=== PATIENT | female | born 1940 | race African-American/Black ===

== ENCOUNTER 2016-06-26 18:05 | Inpatient (IN) | payer MEDICARE ==
--- NOTE | ~2016-06-26 | DS ---
Discharge Summary [address] [place]. [address] NAME: ALTAF RENTERIA : 36 STATUS : DIS IN PAT#: [id number] AGE: 75 ADM/REG DATE : 06/26/16 MR#: [id number] REPORT SERV DATE: 07/02/16 DICTATED BY: GILBERTO BOLIVAR DATE: 07/01/16 REPORT STATUS : Draft TRANSCRIBED BY: KURT DATE: 07/01/16 ADMISSION DATE: 06/26/2016 DISCHARGE DATE: 07/01/2016 The patient has been approved for subacute rehab given her hemodynamic stability, the patient will be discharged today to subacute rehab. DISCHARGE EXAM: GENERAL: The patient's blood pressure 122/60, pulse of 66, respirations of 15, O2 saturation 97% on room air. The patient sitting in chair, in no acute distress. Appears stated age. Alert and oriented x3. HEENT: Normocephalic, atraumatic. Extraocular motors intact. Moist oral mucosa. Pupils round reactive to light and accommodation. NECK: Trachea midline and symmetric. No JVD noted. No thyromegaly present. No lymphadenopathy present. CHEST: Nontender to palpation. No scars noted. CARDIOVASCULAR: Regular rate and rhythm. S1, S2. No murmurs, rubs, or gallops. LUNGS: Clear to auscultation bilaterally. No added breath sounds. ABDOMEN: Positive bowel sounds. Nontender. Nondistended. No masses palpated. EXTREMITIES: No cyanosis, no clubbing, no edema. NEURO: Alert and oriented x3. No focal deficits appreciated. DISCHARGE MEDICATIONS: Amlodipine 10 mg p.o. daily, lisinopril 10 mg p.o. daily. Neosporin ointment 15 g apply to the affected areas. DISPOSITION: The patient will be discharged to [facility]. ACTIVITY: As tolerated. DIET: Regular diet. Greater than 30 minutes was spent coordinating, discharge, dictating note, medication reconciliation, discussion of care with nursing staff and case management. DELONTE Gilberto Bolivar MD / [id number] CC: MD Gera Polo, DO
--- NOTE | ~2016-06-26 | IDS ---
Interim Discharge Summary [facility] [address] [place]. [address] NAME: ALTAF RENTERIA : 36 STATUS : ADM IN PAT#: [id number] AGE: 75 ADM/REG DATE : 06/26/16 MR#: [id number] REPORT SERV DATE: 07/01/16 DICTATED BY: GILBERTO BOLIVAR DATE: 07/01/16 REPORT STATUS : Draft TRANSCRIBED BY: MODL DATE: 07/01/16 ADMISSION DATE: 06/26/2016 DISCHARGE DATE: The patient is a 75-year-old female with a history of hypertension and dementia who presented to the hospital with altered mental status. For further details please refer to H and P dictated by Dr. Kan on 06/27/2016. HOSPITAL COURSE: Upon presentation to the emergency room, preliminary workup noted the patient with hyponatremia and chest x-ray findings concerning for pneumonia. The patient was admitted to hospital service for further management. The patient was started on IV antibiotics for treatment of community-acquired pneumonia. Also, when the patient arrived to the floor, her sodium was noted to be at 120, and the patient was started on 3% IV normal saline. The patient received a total of about 290 mL of 3% sodium over the course of 48 hours with eventual correction of her sodium initially to 132. Over the course of her hospitalization, her sodium was progressively improved, and now it is normal at sodium of 140. Also during her hospital course, the patient was noted to be hypertensive started on amlodipine and lisinopril with good blood pressure control achieved. Management of the patient was complete on Friday and on 06/29/2016, the patient was scheduled to be discharged, however, on 06/29/2016, the patient had a fall episode. Given this significant change on discharge, plans were canceled. PT was called to evaluate the patient. Per PT evaluation, their recommendation was for patient to be discharged to subacute rehab. Plan was discussed with the patient who was agreeable. The patient currently is hemodynamically stable, medically clear for discharge. She is pending discharge to [facility] pending bed availability. DISCHARGE DIAGNOSES: 1. Hyponatremia. 2. Acute encephalopathy. 3. Hypertension. 4. Community-acquired pneumonia. 5. Ground level fall. 6. Dementia. DISPOSITION IMAGING: CT brain without contrast impression: No acute intracranial abnormality identified at this time. Mild cortical volume loss and findings compatible with mild chronic deep white matter ischemic changes. Portable chest x-ray, impression: No acute process. Markings in the right upper lobe have resolved. Two-view radiograph of right hip impression; no evidence of acute right hip abnormality. DISCHARGE PLANNING: Pending availability of bed at [facility]. Interim Discharge Summary [address] [place]. [address] NAME: ALTAF RENTERIA : 36 STATUS : ADM [facility]#: [id number] AGE: 75 ADM/REG DATE : 06/26/16 MR#: [id number] REPORT SERV DATE: 07/01/16 DICTATED BY: GILBERTO BOLIVAR DATE: 07/01/16 REPORT STATUS : Draft TRANSCRIBED BY: KURT DATE: 07/01/16 DANNY/KURT Gilberto Bolivar MD / [id number] CC: MD Mey Polo
--- NOTE | ~2016-06-26 | HP ---
History And Physical [id number] [facility] [place]. [address] NAME: ALTAF RENTERIA : 36 STATUS : ADM IN PAT#: [id number] AGE: 75 ADM/REG DATE : 06/26/16 MR#: [id number] REPORT SERV DATE: 06/27/16 DICTATED BY: TURNER KAN DATE: 06/26/16 REPORT STATUS : Draft TRANSCRIBED BY: MODL DATE: 06/26/16 DATE OF ADMISSION: 06/26/2016 CHIEF COMPLAINT: Altered mental status. HISTORY OF PRESENT ILLNESS: This is a 75-year-old lady with history of hypertension, diabetes, and dementia presenting with altered mental status. Please note that at the time of my encounter with the patient, the patient was not able to provide any valuable history. The patient was actually quite lethargic and was not that responsive. This H and P is formulated from information gathered from ER staff as well as the patient's grandson who was at bedside in the ER. The patient was last seen normal by the grandson yesterday and the day before. The patient did not have any acute illnesses and she did not have any acute complaints. Apparently last night when the patient was talking to one of her family members, she sounded a little bit more altered, however, given her baseline dementia that did not raise any concerns. This morning, the patient's grandson was told by one of the family members to pay her a visit because the patient was still altered. When the patient's grandson got to the house and called the patient, the patient actually picked up the phone and she said she would come out and open the door, however, she never actually came out to open the door. When grandson went to the back of the house and entered the house, the patient was seen walking around in the house confused. The patient apparently reported that she was not feeling well, that she had nausea and some headache. The patient was brought to the ER for further evaluation and care. The patient was able to walk out of the house with minimal assistance, and on the way to the ER, the patient had two episodes of vomiting. Once the patient got to the ER, the patient could not get out of the car and required a lot of assistance to be transported into the ER. Ever since being in the ER, the patient became progressively more lethargic. In the ER, the patient was found to be afebrile, and initially, she was found to be quite hypertensive with blood pressure of 201/103 and it remained high throughout the ER stay. The patient was, otherwise, hemodynamically stable and rest of her vitals were within normal limits. Initial lab evaluation revealed a hyponatremia with sodium of 123, but otherwise, fairly benign electrolytes and LFTs. The patient's CBC was also quite benign. Lactate was found to be elevated at 4.1. Urinalysis was benign and CT of the head was also nonacute other than mild volume loss and chronic ischemic changes. The patient's chest x-ray showed questionable right upper lobe pneumonia. Internal Medicine consultation was requested for admission of the patient for further evaluation and care. Upon asking the patient's grandson, he reports that when he entered the house, he noticed that the patient has not taken her medications. He thus gave her Zoloft and Namenda, but he could not find her antihypertensive which is a Norvasc and thus that was not given to the patient before coming to the ER. REVIEW OF SYSTEMS: Unable to be obtained from the patient at this time. History And Physical [address] [address] NAME: ALTAF RENTERIA : 36 STATUS : ADM IN [facility]#: [id number] AGE: 75 ADM/REG DATE : 06/26/16 MR#: [id number] REPORT SERV DATE: 06/27/16 DICTATED BY: TURNER KAN DATE: 06/26/16 REPORT STATUS : Draft TRANSCRIBED BY: MODKee DATE: 06/26/16 MEDICATIONS: The medication list is questionably complete, but: 1. Norvasc 10 mg p.o. daily. 2. Namenda 20 mg p.o. daily. 3. Zoloft 50 mg p.o. daily. ALLERGIES: NKDA. PAST MEDICAL HISTORY: 1. Hypertension. 2. Diabetes type 2. 3. Dementia, but the patient is still quite independent at baseline. PAST SURGICAL HISTORY: The patient's grandson is unaware of any major surgeries. FAMILY HISTORY: Hypertension. SOCIAL HISTORY: The patient does not smoke, drink alcohol, or use any illicit drugs. Again, the patient does have dementia, but it appears to be quite mild at baseline and she still lives by herself. The patient requires minimal assistance from the family members. PHYSICAL EXAMINATION: VITAL SIGNS: Temperature 97.2, blood pressure 201/103, pulse 86, respiratory rate is 18, and saturating 98% on room air. The patient is quite lethargic and she will barely arouse and awake to stimuli. The patient is still seem to be moving all extremities without difficulty, and there are no obvious focal neurologic deficits. GENERAL: Again, the patient is quite lethargic, but she does not appear to be in acute distress. The patient is not cooperative secondary to the encephalopathy. NECK: No JVD. No lymphadenopathy. Normal thyroid. CHEST: No midline sternotomy scar and no tenderness to palpation. LUNGS: Clear to auscultation bilaterally with normal respiratory effort on room air. CARDIOVASCULAR: Regular rate and rhythm with no murmurs, rubs, or gallops and PMI is nondisplaced. ABDOMEN: Soft and nontender with active bowel sounds and no organomegaly. EXTREMITIES: No edema. Normal distal pulses. No calf tenderness. SKIN: Clean, dry, warm, and intact. LABORATORY DATA: Sodium is 123, potassium 3.9, chloride 84, BUN 8, creatinine 0.62, glucose 179, and calcium 9.4. LFTs are within normal limits. Lactate is 4.1. White blood cell count is 9.2, hemoglobin 13.1, and platelets 270. INR is 1.0. Troponin is less than 0.02 and TSH was 0.858. Urinalysis was negative for urinary tract infection. Chest x-ray is personally interpreted and it shows questionable right upper lobe pneumonia. CT of the head was negative other than chronic mild volume loss as well as chronic ischemic changes of the white matter. ASSESSMENT: This is a 75-year-old lady with history of hypertension, diabetes, and dementia presenting with an acute encephalopathy. History And Physical [address] [address] NAME: DEXTERALTAF Halie : 36 STATUS : ADM IN [facility]#: [id number] AGE: 75 ADM/REG DATE : 06/26/16 MR#: [id number] REPORT SERV DATE: 06/27/16 DICTATED BY: TURNER KAN DATE: 06/26/16 REPORT STATUS : Draft TRANSCRIBED BY: MODL DATE: 06/26/16 1. Acute encephalopathy. 2. Hypertensive urgency versus emergency. 3. Hyponatremia. 4. Questionable pneumonia, right upper lobe. 5. Diabetes. 6. Baseline dementia, mild. PLAN: My plan is to admit the patient on the telemetry monitoring. The patient will be given gentle IV fluid resuscitation. The patient's hypertension will be controlled with topical nitroglycerin paste as well as p.r.n. antihypertensives. I will also go ahead and start her p.o. antihypertensives when she is more awake. In's and out's will be closely monitored as well as electrolytes and renal function. I will also go ahead and start her on empiric antibiotics to cover community-acquired pneumonia and I will do infectious workup. Otherwise, standard DVT prophylaxis. The patient is full code at this time. YSC/MODL Turner Kan MD / [id number] CC: Franky Torres MD
[2016-06-26 17:36] LABS: ASCORBIC ACID (UR NOT ORDER) NEG (NEG); BILIRUBIN, URINE NEGATIVE (NEG); ER URINALYSIS TAT 0 Hrs 10 Mins; KETONE, URINE 20 MG/DL (NEG); LEUKOCYTE ESTERASE(NOT OR NEG (NEG); NITRITE (URINE) NEG (NEG); WBC (NOT ORDERED) (RFLEX) 1 (0-5)
[2016-06-26 17:39] LABS: PROTIME (NOT ORD) 13.4 SEC (12.0-14.5)
[2016-06-26 17:56] LABS: ALBUMIN 4.3 G/DL (3.5-5.0); ALKALINE PHOSPHATASE 70 U/L (45-117); CALCIUM, SERUM 9.4 MG/DL (8.5-10.4); CREATININE 0.62 MG/DL (0.55-1.02); GFR AFRICAN AMERICAN 101 ML/MIN (>=60); GFR NON AFRICAN AMERICAN 87 ML/MIN (>=60); POTASSIUM, SERUM 3.9 MMOL/L (3.5-5.3); SGOT(AST) 17 U/L (5-40); SGPT(ALT) 22 U/L (5-65); TROPONIN I <0.02 NG/ML (<0.05)
[2016-06-26 17:57] LABS: A/G RATIO 1.2 (0.7-1.9); BUN (BLOOD UREA NITROGEN) 8 MG/DL (6-23); CHLORIDE, SERUM 84 MMOL/L (96-112); CO2 (CARBON DIOXIDE) 23 MMOL/L (24-34); GLOBULIN 3.7 G/DL (2.5-4.1); GLUCOSE, SERUM 179 MG/DL (60-99); SODIUM, SERUM 123 MMOL/L (135-148); TOTAL BILIRUBIN 1.7 MG/DL (0-1.2); ULTRASENSITIVE TSH 0.858 MCIU/ML (0.358-3.740)
[2016-06-26] MEDS ORDERED: ZOLOFT (18:12)
[2016-06-26] MEDS ORDERED: NAMENXR28 PO (18:12)
[2016-06-26] MEDS ORDERED: ZOL50 PO (18:12)
[2016-06-26] MEDS ORDERED: NORV10 PO (18:13)
[2016-06-26 18:56] LABS: BASOPHILS 0 %; EOSINOPHILS 0 %; HEMATOCRIT 37.7 % (36.0-48.0); HEMOGLOBIN 13.1 g/dL (12.0-16.0); IMMATURE GRANULOCYTES 0.5 %; IMMATURE GRANULOCYTES ABSOLUTE 0.05 10/3/uL (0.0-0.11); LYMPHOCYTES 4.6 %; LYMPHOCYTES ABSOLUTE 0.42 10/3/uL (0.67-4.30); MEAN CORPUSCULAR HEMOGLOB 29.1 pg (26.0-34.0); MEAN PLATELET VOLUME 9.4 fL (9.2-13.0); MONOCYTES 4.2 %; MONOCYTES ABSOLUTE 0.39 10/3/uL (0.21-1.20); NEUTROPHILS 90.7 %; NEUTROPHILS ABSOLUTE 8.34 10/3/uL (2.02-8.40); PLATELET COUNT 270 10/3/uL (150-400); RBC DISTRIBUTION WIDTH 12.2 % (12.0-16.0)
[2016-06-26 18:58] LABS: MANUAL DIFF NO %; MEAN CORPUS HGB CONC 34.7 g/dL (32.0-36.0); MEAN CORPUSCULAR VOLUME 83.8 fL (80-100); WHITE BLOOD CELLS 9.2 10/3/uL (4.5-10.5)
[2016-06-27 01:42] LABS: CPK (IF ELEVATED MB BANDS) 128 U/L (0-200); TROPONIN I <0.02 NG/ML (<0.05)
[2016-06-27 02:18] LABS: PROCALCITONIN 0.06 ng/mL (<0.5)
[2016-06-27 06:21] LABS: BASOPHILS 0 %; EOSINOPHILS 0 %; HEMOGLOBIN 12.7 g/dL (12.0-16.0); LYMPHOCYTES 11.5 %; LYMPHOCYTES ABSOLUTE 0.64 10/3/uL (0.67-4.30); MEAN CORPUS HGB CONC 35.3 g/dL (32.0-36.0); MEAN PLATELET VOLUME 9.4 fL (9.2-13.0); MONOCYTES 3.8 %; MONOCYTES ABSOLUTE 0.21 10/3/uL (0.21-1.20); NEUTROPHILS 84.7 %; PLATELET COUNT 345 10/3/uL (150-400); RBC DISTRIBUTION WIDTH 12.3 % (12.0-16.0); RED CELL COUNT 4.53 10/6/uL (4.0-5.6); WHITE BLOOD CELLS 5.6 10/3/uL (4.5-10.5)
[2016-06-27 06:24] LABS: MANUAL DIFF NO %; MEAN CORPUSCULAR VOLUME 79.5 fL (80-100)
[2016-06-27 06:25] LABS: BUN (BLOOD UREA NITROGEN) 11 MG/DL (6-23); CALCIUM, SERUM 8.5 MG/DL (8.5-10.4); CHLORIDE, SERUM 84 MMOL/L (96-112); CO2 (CARBON DIOXIDE) 20 MMOL/L (24-34); CPK (IF ELEVATED MB BANDS) 146 U/L (0-200); CREATININE 0.71 MG/DL (0.55-1.02); GFR AFRICAN AMERICAN 95 ML/MIN (>=60); GFR NON AFRICAN AMERICAN 82 ML/MIN (>=60); GLUCOSE, SERUM 169 MG/DL (60-99); POTASSIUM, SERUM 3.5 MMOL/L (3.5-5.3); TROPONIN I <0.02 NG/ML (<0.05)
[2016-06-27 06:26] LABS: SODIUM, SERUM 120 MMOL/L (135-148)
[2016-06-27 17:37] LABS: BUN (BLOOD UREA NITROGEN) 13 MG/DL (6-23); CALCIUM, SERUM 8.5 MG/DL (8.5-10.4); CHLORIDE, SERUM 87 MMOL/L (96-112); CO2 (CARBON DIOXIDE) 22 MMOL/L (24-34); CREATININE 0.58 MG/DL (0.55-1.02); GFR AFRICAN AMERICAN 103 ML/MIN (>=60); GFR NON AFRICAN AMERICAN 89 ML/MIN (>=60)
[2016-06-27 17:38] LABS: GLUCOSE, SERUM 131 MG/DL (60-99); SODIUM, SERUM 119 MMOL/L (135-148)
[2016-06-28 00:42] LABS: BUN (BLOOD UREA NITROGEN) 12 MG/DL (6-23); CALCIUM, SERUM 8.4 MG/DL (8.5-10.4); CHLORIDE, SERUM 86 MMOL/L (96-112); CO2 (CARBON DIOXIDE) 24 MMOL/L (24-34); CREATININE 0.49 MG/DL (0.55-1.02); GFR AFRICAN AMERICAN 109 ML/MIN (>=60); GFR NON AFRICAN AMERICAN 94 ML/MIN (>=60); POTASSIUM, SERUM 3.8 MMOL/L (3.5-5.3); SODIUM, SERUM 123 MMOL/L (135-148)
[2016-06-28 00:47] LABS: GLUCOSE, SERUM 104 MG/DL (60-99)
[2016-06-28 05:08] LABS: BASOPHILS 0 %; EOSINOPHILS 0 %; HEMATOCRIT 34.7 % (36.0-48.0); HEMOGLOBIN 12.3 g/dL (12.0-16.0); IMMATURE GRANULOCYTES 0.2 %; IMMATURE GRANULOCYTES ABSOLUTE 0.02 10/3/uL (0.0-0.11); LYMPHOCYTES 8.6 %; LYMPHOCYTES ABSOLUTE 0.83 10/3/uL (0.67-4.30); MEAN CORPUS HGB CONC 35.4 g/dL (32.0-36.0); MEAN CORPUSCULAR HEMOGLOB 28.9 pg (26.0-34.0); MEAN CORPUSCULAR VOLUME 81.6 fL (80-100); MEAN PLATELET VOLUME 9.3 fL (9.2-13.0); MONOCYTES 7.3 %; NEUTROPHILS 83.9 %; PLATELET COUNT 313 10/3/uL (150-400); RBC DISTRIBUTION WIDTH 12.2 % (12.0-16.0); RED CELL COUNT 4.25 10/6/uL (4.0-5.6)
[2016-06-28 05:09] LABS: MANUAL DIFF NO %; WHITE BLOOD CELLS 9.7 10/3/uL (4.5-10.5)
[2016-06-28 05:10] LABS: A/G RATIO 1.1 (0.7-1.9); ALBUMIN 3.5 G/DL (3.5-5.0); BUN (BLOOD UREA NITROGEN) 12 MG/DL (6-23); CALCIUM, SERUM 8.3 MG/DL (8.5-10.4); CHLORIDE, SERUM 89 MMOL/L (96-112); CO2 (CARBON DIOXIDE) 23 MMOL/L (24-34); CREATININE 0.51 MG/DL (0.55-1.02); GFR AFRICAN AMERICAN 107 ML/MIN (>=60); GFR NON AFRICAN AMERICAN 93 ML/MIN (>=60); GLOBULIN 3.1 G/DL (2.5-4.1); GLUCOSE, SERUM 106 MG/DL (60-99); POTASSIUM, SERUM 3.7 MMOL/L (3.5-5.3); SGOT(AST) 21 U/L (5-40); SGPT(ALT) 22 U/L (5-65); SODIUM, SERUM 123 MMOL/L (135-148); TOTAL PROTEIN 6.6 G/DL (6.0-8.5)
[2016-06-28 05:12] LABS: ALKALINE PHOSPHATASE 50 U/L (45-117); TOTAL BILIRUBIN 0.9 MG/DL (0-1.2)
[2016-06-28 17:47] LABS: BUN (BLOOD UREA NITROGEN) 13 MG/DL (6-23); CALCIUM, SERUM 8.7 MG/DL (8.5-10.4); CHLORIDE, SERUM 98 MMOL/L (96-112); CO2 (CARBON DIOXIDE) 22 MMOL/L (24-34); CREATININE 0.46 MG/DL (0.55-1.02); GFR AFRICAN AMERICAN 111 ML/MIN (>=60); GFR NON AFRICAN AMERICAN 96 ML/MIN (>=60); GLUCOSE, SERUM 92 MG/DL (60-99); POTASSIUM, SERUM 4.1 MMOL/L (3.5-5.3)
[2016-06-28 17:50] LABS: SODIUM, SERUM 132 MMOL/L (135-148)
[2016-06-28 19:57] LABS: CREATININE, URINE 32.3 MG/DL
[2016-06-29 07:34] LABS: BASOPHILS 0 %; EOSINOPHILS 0.4 %; EOSINOPHILS ABSOLUTE 0.02 10/3/uL (0.0-0.53); HEMOGLOBIN 12.2 g/dL (12.0-16.0); IMMATURE GRANULOCYTES 0.4 %; IMMATURE GRANULOCYTES ABSOLUTE 0.02 10/3/uL (0.0-0.11); LYMPHOCYTES 18.5 %; LYMPHOCYTES ABSOLUTE 0.96 10/3/uL (0.67-4.30); MEAN CORPUS HGB CONC 34.9 g/dL (32.0-36.0); MEAN CORPUSCULAR HEMOGLOB 29.5 pg (26.0-34.0); MEAN PLATELET VOLUME 9.1 fL (9.2-13.0); MONOCYTES 13.5 %; NEUTROPHILS 67.2 %; PLATELET COUNT 257 10/3/uL (150-400); RBC DISTRIBUTION WIDTH 12.5 % (12.0-16.0); RED CELL COUNT 4.14 10/6/uL (4.0-5.6)
[2016-06-29 07:36] LABS: MEAN CORPUSCULAR VOLUME 84.5 fL (80-100); WHITE BLOOD CELLS 5.2 10/3/uL (4.5-10.5)
[2016-06-29 07:37] LABS: MANUAL DIFF NO %
[2016-06-29 07:51] LABS: A/G RATIO 1.1 (0.7-1.9); ALBUMIN 3.1 G/DL (3.5-5.0); ALKALINE PHOSPHATASE 49 U/L (45-117); BUN (BLOOD UREA NITROGEN) 12 MG/DL (6-23); CALCIUM, SERUM 8.3 MG/DL (8.5-10.4); CHLORIDE, SERUM 105 MMOL/L (96-112); CO2 (CARBON DIOXIDE) 27 MMOL/L (24-34); CREATININE 0.59 MG/DL (0.55-1.02); GFR AFRICAN AMERICAN 102 ML/MIN (>=60); GFR NON AFRICAN AMERICAN 88 ML/MIN (>=60); GLOBULIN 2.9 G/DL (2.5-4.1); GLUCOSE, SERUM 94 MG/DL (60-99); POTASSIUM, SERUM 3.5 MMOL/L (3.5-5.3); SGOT(AST) 19 U/L (5-40); SGPT(ALT) 20 U/L (5-65); SODIUM, SERUM 138 MMOL/L (135-148); TOTAL BILIRUBIN 0.6 MG/DL (0-1.2)
[2016-06-30 06:43] LABS: BASOPHILS 0.2 %; BASOPHILS ABSOLUTE 0.01 10/3/uL (0.0-0.16); EOSINOPHILS 1.3 %; EOSINOPHILS ABSOLUTE 0.07 10/3/uL (0.0-0.53); HEMOGLOBIN 11.9 g/dL (12.0-16.0); IMMATURE GRANULOCYTES 0.2 %; IMMATURE GRANULOCYTES ABSOLUTE 0.01 10/3/uL (0.0-0.11); LYMPHOCYTES 16.2 %; MANUAL DIFF NO %; MEAN CORPUSCULAR HEMOGLOB 29.2 pg (26.0-34.0); MEAN PLATELET VOLUME 9.1 fL (9.2-13.0); MONOCYTES 10.3 %; MONOCYTES ABSOLUTE 0.57 10/3/uL (0.21-1.20); NEUTROPHILS 71.8 %; PLATELET COUNT 266 10/3/uL (150-400); RBC DISTRIBUTION WIDTH 12.6 % (12.0-16.0); RED CELL COUNT 4.07 10/6/uL (4.0-5.6); WHITE BLOOD CELLS 5.6 10/3/uL (4.5-10.5)
[2016-06-30 06:58] LABS: A/G RATIO 0.9 (0.7-1.9); ALBUMIN 2.8 G/DL (3.5-5.0); ALKALINE PHOSPHATASE 47 U/L (45-117); BUN (BLOOD UREA NITROGEN) 11 MG/DL (6-23); CALCIUM, SERUM 8.2 MG/DL (8.5-10.4); CHLORIDE, SERUM 106 MMOL/L (96-112); CO2 (CARBON DIOXIDE) 25 MMOL/L (24-34); CREATININE 0.52 MG/DL (0.55-1.02); GFR AFRICAN AMERICAN 107 ML/MIN (>=60); GFR NON AFRICAN AMERICAN 92 ML/MIN (>=60); GLUCOSE, SERUM 95 MG/DL (60-99); POTASSIUM, SERUM 3.6 MMOL/L (3.5-5.3); SGOT(AST) 15 U/L (5-40); SGPT(ALT) 19 U/L (5-65); SODIUM, SERUM 140 MMOL/L (135-148); TOTAL BILIRUBIN 0.5 MG/DL (0-1.2); TOTAL PROTEIN 5.8 G/DL (6.0-8.5)
[2016-07-01 05:03] LABS: BASOPHILS 0.4 %; BASOPHILS ABSOLUTE 0.02 10/3/uL (0.0-0.16); EOSINOPHILS 3.9 %; HEMATOCRIT 34.7 % (36.0-48.0); HEMOGLOBIN 11.5 g/dL (12.0-16.0); IMMATURE GRANULOCYTES 0.2 %; IMMATURE GRANULOCYTES ABSOLUTE 0.01 10/3/uL (0.0-0.11); LYMPHOCYTES 21.8 %; LYMPHOCYTES ABSOLUTE 1.12 10/3/uL (0.67-4.30); MEAN CORPUS HGB CONC 33.1 g/dL (32.0-36.0); MEAN CORPUSCULAR HEMOGLOB 28.3 pg (26.0-34.0); MEAN CORPUSCULAR VOLUME 85.5 fL (80-100); MEAN PLATELET VOLUME 9.1 fL (9.2-13.0); MONOCYTES 8.9 %; MONOCYTES ABSOLUTE 0.46 10/3/uL (0.21-1.20); NEUTROPHILS 64.8 %; NEUTROPHILS ABSOLUTE 3.33 10/3/uL (2.02-8.40); PLATELET COUNT 291 10/3/uL (150-400); RBC DISTRIBUTION WIDTH 12.8 % (12.0-16.0); RED CELL COUNT 4.06 10/6/uL (4.0-5.6); WHITE BLOOD CELLS 5.1 10/3/uL (4.5-10.5)
[2016-07-01 05:04] LABS: MANUAL DIFF NO %
[2016-07-01 05:24] LABS: A/G RATIO 0.8 (0.7-1.9); ALBUMIN 2.8 G/DL (3.5-5.0); ALKALINE PHOSPHATASE 44 U/L (45-117); BUN (BLOOD UREA NITROGEN) 10 MG/DL (6-23); CALCIUM, SERUM 8.8 MG/DL (8.5-10.4); CHLORIDE, SERUM 107 MMOL/L (96-112); CO2 (CARBON DIOXIDE) 25 MMOL/L (24-34); CREATININE 0.53 MG/DL (0.55-1.02); GFR AFRICAN AMERICAN 106 ML/MIN (>=60); GFR NON AFRICAN AMERICAN 92 ML/MIN (>=60); GLOBULIN 3.4 G/DL (2.5-4.1); GLUCOSE, SERUM 94 MG/DL (60-99); POTASSIUM, SERUM 3.9 MMOL/L (3.5-5.3); SGOT(AST) 11 U/L (5-40); SGPT(ALT) 18 U/L (5-65); SODIUM, SERUM 140 MMOL/L (135-148); TOTAL BILIRUBIN 0.4 MG/DL (0-1.2); TOTAL PROTEIN 6.2 G/DL (6.0-8.5)
[2016-12-18] MEDS ORDERED: REM15 PO (18:58)
[2016-12-18] MEDS ORDERED: NAMENXR28 PO (18:58)
[2016-12-18] MEDS ORDERED: PRIN5 PO (18:59)
[2016-12-18] MEDS ORDERED: NORV10 PO (18:59)
[2016-12-23] MEDS ORDERED: VITD PO (16:48)
[2016-12-23] MEDS ORDERED: EXELON4.6T TOP (16:49)
== END 2016-07-01 23:09 | DRG 193 ==
LOC: ER 18:05 → 2SO 19:55
PROVIDERS: Emergency Medicine; Hospitalist; Internal Medicine
DX: J18.1 Lobar pneumonia, unspecified organism (principal); G93.40 Encephalopathy, unspecified; F03.90 Unspecified dementia, unspecified severity, without behavioral disturbance, psychotic disturbance, mood disturbance, and anxiety; E11.9 Type 2 diabetes mellitus without complications; E87.1 Hypo-osmolality and hyponatremia; I16.1 Hypertensive emergency; W18.30XA Fall on same level, unspecified, initial encounter; F41.9 Anxiety disorder, unspecified; Z82.49 Family history of ischemic heart disease and other diseases of the circulatory system
CPT/HCPCS: 70450; 71010; 73502-RT; 80048; 80053; 81001; 82550; 82570; 82962; 83036; 83605; 83690; 83930; 84133; 84145; 84300; 84443; 84484; 85025; 85610; 87040; 87449; 92610-GN; 93005; 96365; 96375; 97116-GP; 97162-GP; 99285; A9270-GY; G8978-CK-GP; G8979-CJ-GP; G8996-CJ-GN; G8997-CJ-GN; G8998-CJ-GN; J0456; J2405